=== PATIENT | female | born 1965 | race Caucasian/White ===

== ENCOUNTER 2016-10-06 22:09 | Emergency (ER) | payer MEDICARE, MEDICAID, OTHER ==
[~2016-10-06] VITALS: Ht 157.5 cm; Wt 70.0 kg
[~2016-10-06 22:09] MED LIST: XANA0.5T PO
[2016-10-06 22:10] VITALS: BP 140/81; PULSE 76; RESP 19; TEMP 98.3; O2SAT 97
[2016-10-06] MEDS ORDERED: METO25TA3 PO (22:33)
[2016-10-06] MEDS ORDERED: ALPR.5 PO (22:33)
[2016-10-06] MEDS ORDERED: CLON0.1T PO (22:33)
[2016-10-06] MEDS ORDERED: TOPA25TA8 PO (22:33)
[2016-10-06] MEDS ORDERED: ONDANSETRON HCL 4 MG/2 ML VIAL IV PUSH ONE (23:15)
[2016-10-06] MEDS ORDERED: SODIUM CHLORIDE 0.9% FLUSH 5 ML FLUSH IVF PRN (23:15)
[2016-10-06 23:26] LABS: AUTOMATED NEUTROPHIL # 5.3 TH/MM3 (1.8-7.7); BASOPHIL # 0.1 TH/MM3 (0-0.2); BASOPHIL % 0.8 % (0.0-2.0); EOSINOPHIL # 0.1 TH/MM3 (0-0.4); EOSINOPHIL % 1.1 % (0.0-4.0); HEMATOCRIT 38.8 % (35.0-46.0); HEMO FLAGS DIFF FINAL; LYMPH % 43.5 % (9.0-44.0); LYMPHOCYTE # 4.6 TH/MM3 (1.0-4.8); MEAN CELL VOLUME 93.1 FL (80.0-100.0); MEAN CORPUSCULAR HEMOGLOBIN 32.9 PG (27.0-34.0); MEAN CORPUSCULAR HGB CONC 35.4 % (32.0-36.0); MONO % 4.2 % (0.0-8.0); NEUT % 50.4 % (16.0-70.0); PLATELET COUNT 264 TH/MM3 (150-450); RED BLOOD COUNT 4.17 MIL/MM3 (4.00-5.30); RED CELL DISTRIBUTION WIDTH 13.3 % (11.6-17.2); WHITE BLOOD COUNT 10.6 TH/MM3 (4.0-11.0)
[2016-10-06 23:35] LABS: INTERNATIONAL NORMALIZED RATIO 0.9 RATIO; PROTHROMBIN TIME - PATIENT 9.8 SEC (9.8-11.6)
[2016-10-06 23:49] LABS: ANION GAP 8 MEQ/L (5-15); BICARBONATE 26.3 MEQ/L (21.0-32.0); BLOOD UREA NITROGEN 6 MG/DL (7-18); CHLORIDE 109 MEQ/L (98-107); GLOMERULAR FILTRATION RATE 94 ML/MIN (>89); MAGNESIUM 1.8 MG/DL (1.5-2.5); POTASSIUM 4.1 MEQ/L (3.5-5.1); SODIUM (NA) 143 MEQ/L (136-145)
[2016-10-06 23:58] LABS: CREATINE KINASE 57 U/L (26-192)
[2016-10-07] MEDS ORDERED: NITROGLYCERIN 0.4 MG SL 25 TABS/BTL SL ONE
[2016-10-07] MEDS ORDERED: SODIUM CHLOR 0.9% 1000 ML INJ 1,000 ML IV ONE
[2016-10-07] MEDS ORDERED: ASPIRIN 81 MG CHEW TAB CHEW ONE
[2016-10-07] MEDS ORDERED: MORPHINE SULFATE 4 MG/ML INJ IV PUSH ONE
--- NOTE | 2016-10-07 00:10 | RADRPT ---
EXAM DATE/TIME: 10/07/2016 00:00 [facility] COMPARISON: No previous studies available for comparison. INDICATIONS : Chest pain. MEDICAL HISTORY : None. SURGICAL HISTORY : None. ENCOUNTER: Initial ACUITY: 1 day PAIN SCORE: 6/10 LOCATION: Bilateral chest FINDINGS: There is mild cardiomegaly and mild, mainly interstitial opacities of both lung bases. No large effus ion. No pneumothorax. CONCLUSION: Mild cardiomegaly and suspected early/mild failure. Dami East MD on October 07, 2016 at 0:08 Board Certified Radiologist. This report was verified electronically.
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
--- NOTE | 2016-10-07 00:30 | RADRPT ---
EXAM DATE/TIME: 10/07/2016 00:05 [facility] COMPARISON: No previous studies available for comparison. INDICATIONS : Headaches. RADIATION DOSE: 43.56 CTDIvol (mGy) MEDICAL HISTORY : Hypertension. SURGICAL HISTORY : None. ENCOUNTER: Initial ACUITY: 1 day PAIN SCALE: 10/10 LOCATION: Bilateral cranial TECHNIQUE: Multiple contiguous axial images were obtained of the head. Using automated exposure control and adj ustment of the mA and/or kV according to patient size, radiation dose was kept as low as reasonably a chievable to obtain optimal diagnostic quality images. FINDINGS: CEREBRUM: The ventricles are normal for age. No evidence of midline shift, mass lesion, hemorrhage or acute in farction. No extra-axial fluid collections are seen. POSTERIOR FOSSA: The cerebellum and brainstem are intact. The 4th ventricle is midline. The cerebellopontine angle i s unremarkable. EXTRACRANIAL: Lower most axial image partly shows a mucus retention cyst of the right maxillary air cell that measu res at least 1 cm in size. There is mild mucoperiosteal thickening of the ethmoid air cells. SKULL: The calvaria is intact. No evidence of skull fracture. CONCLUSION: 1. No acute intracranial abnormality demonstrated. 2. Mild sinus disease. Dami East MD on October 07, 2016 at 0:27 Board Certified Radiologist. This report was verified electronically.
[2016-10-07] MEDS ORDERED: KETOROLAC TROMETHAMINE 30 MG/ML (IVP) VIAL IV PUSH ONE (02:30)
[2016-10-07] MEDS ORDERED: FUROSEMIDE 20 MG TAB PO ONE (02:30)
[2016-10-07 02:35] VITALS: RESP 20; O2SAT 95
[2016-10-07 02:36] VITALS: BP 117/80; PULSE 90; RESP 20; O2SAT 95
[2016-10-07] MEDS ORDERED: FURO1TAB62 PO (02:38)
[2016-10-07 03:16] LABS: BLOOD, URINE NEG (NEG); COMMENT (UR) CULT NOT INDICATED; CULTURE IF INDICATED CULT NOT INDICATED; GLUCOSE,URINE NEG (NEG); HYALINE CAST, URINE 1 /lpf (RARE); KETONE, URINE NEG (NEG); MUCUS URINE FEW /lpf (OCC); NITRITE,URINE NEG (NEG); PH, URINE 5.5 (5.0-8.5); SQUAMOUS EPITHELIAL CELL URINE <1 /hpf (0-5); URINE COLOR YELLOW (YELLW/STRAW)
[2016-10-07 03:22] LABS: AMPHETAMINE, URINE NEG (NEG); BARBITURATES, URINE NEG (NEG); COCAINE, URINE NEG (NEG)
--- NOTE | 2016-10-07 14:35 | EKG ---
Date Performed: 10/06/2016 Time Performed: 22:40:46 PTAGE: 50 years EKG: Sinus rhythm Nonspecific inferior T wave changes Compared to the PREVIOUS TRACING , patient has developed minimal anterior T wave changes but there is ot herwise no significant serial change. Clinical correlation is advised. PREVIOUS TRACIN09/07/2015 1 9.16 DOCTOR: Esperanza Estes Interpretating Date/Time 10/07/2016 14:34:20
== END 2016-10-07 04:47 | disposition home or self-care (01) ==
LOC: NEPC 22:09
DX: G43.909 Migraine, unspecified, not intractable, without status migrainosus (principal); R07.9 Chest pain, unspecified; I10 Essential (primary) hypertension; Z72.0 Tobacco use
CPT/HCPCS: 70450; 71010; 80048; 80307; 80320; 81001; 82550; 83735; 84484; 85025; 85610; 85730; 93005; 96361; 96374; 96375; 99284; J1885; J2270; J2405; J7030